=== PATIENT | male | born 1940 | race Caucasian/White ===

== ENCOUNTER → 2016-12-20 | Outpatient (CLI) | payer MEDICARE ==
[2016-12-20 09:47] LABS: MEAN CORPUSCULAR HEMOGLOBIN 34.4 pg (27.0-33.0); MEAN CORPUSCULAR HGB CONC 32.7 g/dl (32.0-36.5); MEAN CORPUSCULAR VOLUME 105.4 fl (80.0-96.0); RED CELL DISTRIBUTION WIDTH 14.1 % (11.5-14.5)
[2016-12-20 10:25] LABS: ALBUMIN 3.4 GM/DL (3.2-5.2); ALBUMIN/GLOBULIN RATIO 0.89 (1.00-1.93); ALKALINE PHOSPHATASE 72 U/L (45-117); ALT/SGPT 16 U/L (12-78); ANION GAP 8 MEQ/L (8-16); AST/SGOT 18 U/L (15-37); BILIRUBIN,TOTAL 0.5 MG/DL (0.2-1.0); BLOOD UREA NITROGEN 17 MG/DL (7-18); CALCIUM LEVEL 8.6 MG/DL (8.8-10.2); CARBON DIOXIDE LEVEL 31 MEQ/L (21-32); CHLORIDE LEVEL 99 MEQ/L (98-107); CHOLESTEROL LEVEL 163 MG/DL (<200); CREATININE FOR GFR 0.96 MG/DL (0.70-1.30); GLOMERULAR FILTRATION RATE > 60.0 (>42); GLUCOSE, FASTING 102 MG/DL (83-110); POTASSIUM SERUM 3.8 MEQ/L (3.5-5.1); SODIUM LEVEL 138 MEQ/L (136-145); TOTAL PROTEIN 7.2 GM/DL (6.4-8.2); TRIGLYCERIDES LEVEL 130 MG/DL (<150); URIC ACID 3.8 MG/DL (3.5-7.2)
== END ==
LOC: M LAB 09:30
PROVIDERS: ATTEND Family Medicine
DX: I10 Essential (primary) hypertension (principal); M10.9 Gout, unspecified

== ENCOUNTER → 2017-01-11 | Outpatient (CLI) | payer MEDICARE ==
--- NOTE | 2017-01-11 17:34 | PFTRPT ---
Tech: Marisela REYNOLDS RRT Age: 76 Sex: Male Race: Height: 70.50 Inches Weight: 147.00 Lbs BSA: 1.84 Diagnosis: J44.9 PULMONARY FUNCTION REPORT ORDERING PROVIDER: Eliazar Saldana MD DATE OF SERVICE: 01/11/17 SPIROMETRY: Pre and post bronchodilator study of excellent technical quality. The forced vital capacity is severely reduced. The FEV1 is out of proportion. The obstructive index is, therefore, reduced. FLOW VOLUME LOOP: The expiratory limb of the flow volume loop is consistent with significant obstructive impairment. Favorable bronchodilator response is identified. LUNG VOLUMES: The total lung capacity is borderline elevated. The residual volume suggests significant air trapping. DIFFUSION CAPACITY: The diffusion capacity is severely reduced, but just does correct for alveolar volume. HEMOGLOBIN: No hemoglobin is available for correction. AIRWAY MECHANICS: Airways resistance and conductance are reasonable. IMPRESSION: Severe obstructive ventilatory impairment with underlying air trapping. Favorable bronchodilator response. Reduction in the absolute diffusion capacity. Please correlate clinically. MTDD
== END ==
LOC: M CARPUL 13:24
PROVIDERS: ATTEND Family Medicine
DX: J44.9 Chronic obstructive pulmonary disease, unspecified (principal)

== ENCOUNTER → 2017-08-17 | Outpatient (CLI) | payer MEDICARE ==
[2017-08-17 11:24] LABS: BASO # 0.1 10^3/uL (0.0-0.2); BASO % 1.2 % (0.0-1.0); EOS # 0.2 10^3/uL (0.0-0.50); EOS % 2.4 % (0.0-3.0); HEMATOCRIT 41.7 % (42.0-52.0); HEMOGLOBIN 13.7 g/dl (14.0-18.0); IMMATURE GRANULOCYTE # 0.1 10^3/uL (0-0); IMMATURE GRANULOCYTE % 0.6 % (0-0); LYMPH # 1.8 10^3/uL (1.5-4.5); LYMPH % 18.7 % (24.0-44.0); MEAN CORPUSCULAR HEMOGLOBIN 33.4 pg (27.0-33.0); MEAN CORPUSCULAR HGB CONC 32.9 g/dl (32.0-36.5); MEAN CORPUSCULAR VOLUME 101.7 fl (80.0-96.0); MONO # 0.9 10^3/uL (0.0-0.8); MONO % 9.7 % (0.0-5.0); NEUTROPHILS # 6.3 10^3/uL (1.8-7.7); NEUTROPHILS % 67.4 % (36.0-66.0); PLATELET COUNT, AUTOMATED 274 10^3/uL (150-450); RED CELL DISTRIBUTION WIDTH 13.9 % (11.5-14.5); WHITE BLOOD COUNT 9.4 10^3/uL (4.0-10.0)
[2017-08-17 11:52] LABS: ERYTHROCYTE SEDIMENTATION RATE 38 mm/hr (0-20)
[2017-08-17 12:09] LABS: ALBUMIN 3.7 GM/DL (3.2-5.2); ALBUMIN/GLOBULIN RATIO 0.97 (1.00-1.93); ALKALINE PHOSPHATASE 70 U/L (45-117); ALT/SGPT 20 U/L (12-78); ANION GAP 9 MEQ/L (8-16); AST/SGOT 22 U/L (7-37); BILIRUBIN,TOTAL 0.4 MG/DL (0.2-1.0); BLOOD UREA NITROGEN 38 MG/DL (7-18); CALCIUM LEVEL 9.1 MG/DL (8.8-10.2); CARBON DIOXIDE LEVEL 29 MEQ/L (21-32); CHLORIDE LEVEL 103 MEQ/L (98-107); CREATININE FOR GFR 1.42 MG/DL (0.70-1.30); GLOMERULAR FILTRATION RATE 51.3 (>42); GLUCOSE, FASTING 93 MG/DL (83-110); LDH LACTATE DEHYDROGENASE 147 U/L (87-241); POTASSIUM SERUM 4.5 MEQ/L (3.5-5.1); PROSTATIC SPECIFIC AG MONITOR 0.73 NG/ML (< 4.0); SODIUM LEVEL 141 MEQ/L (136-145); TOTAL PROTEIN 7.5 GM/DL (6.4-8.2)
== END ==
LOC: M LAB 11:03
DX: R63.4 Abnormal weight loss (principal)
CPT/HCPCS: 83615

== ENCOUNTER 2018-08-07 09:53 | Inpatient (IN) | payer MEDICARE ==
[~2018-08-07] VITALS: Ht 172.7 cm; Wt 64.3 kg
[~2018-08-07 09:53] MED LIST: ALLO100T PO; AMLO5TAB4 PO; CEFD300CAP FT; MUCI600T37 PO; PRED10TA2 PO; PROAAER10 INH; SIMV40TA2 PO; SYMB16INH INH; TOPR50TA23 PO; VENTAER INH; ZYLO300T6 PO
[2018-08-07] MEDS ORDERED: methylPREDNISolone INJ 125 MG/2 ML VIAL (J2930) IV ONE (10:30)
[2018-08-07 10:40] LABS: VENOUS BASE EXCESS -0.7 (-2.0-2.0); VENOUS HCO3 27.7 MEQ/L (23.0-27.0); VENOUS O2 SATURATION 68.1 % (60.0-80.0); VENOUS PARTIAL PRESSURE CO2 62.8 mmHg (38.0-50.0); VENOUS PARTIAL PRESSURE O2 38.6 mmHg (30.0-50.0); VENOUS PH 7.263 UNITS (7.330-7.430); VENOUS STANDARD HCO3 23.1 MEQ/L; VENOUS TOTAL CO2 29.7 MEQ/L (24.0-28.0)
[2018-08-07 10:43] LABS: ABG BASE EXCESS -1.5 (-2.0-2.0); ABG HCO3 24.9 MEQ/L (22.0-26.0); ABG O2 SATURATION 94.2 % (95.0-99.0); ABG PARTIAL PRESSURE CO2 48.6 mmHg (35.0-45.0); ABG PARTIAL PRESSURE O2 74.7 mmHg (75.0-100.0); ABG STANDARD HCO3 23.1 MEQ/L (22.0-26.0); ABG TOTAL CO2 26.4 MEQ/L (23.0-31.0); ABG pH (ARTERIAL) 7.327 UNITS (7.350-7.450)
[2018-08-07] MEDS: IPRATROPIUM 0.5MG/ALBUTEROL 2.5MG INH SOL UD 3ML (DUONEB)(J7620) NEB SCH ×3 (10:43→11:03)
[2018-08-07 10:44] LABS: BASO # 0.1 10^3/uL (0.0-0.2); BASO % 0.3 % (0.0-1.0); HEMATOCRIT 40.8 % (42.0-52.0); HEMOGLOBIN 13.3 g/dl (13.5-17.5); LYMPH # 0.5 10^3/uL (1.5-4.5); LYMPH % 3.3 % (24.0-44.0); MEAN CORPUSCULAR HEMOGLOBIN 34.5 pg (27.0-33.0); MEAN CORPUSCULAR HGB CONC 32.6 g/dl (32.0-36.5); MEAN CORPUSCULAR VOLUME 105.7 fl (80.0-96.0); MONO # 0.7 10^3/uL (0.0-0.8); MONO % 4.7 % (0.0-5.0); NEUTROPHILS # 12.9 10^3/uL (1.8-7.7); NEUTROPHILS % 90.6 % (36.0-66.0); PLATELET COUNT, AUTOMATED 199 10^3/uL (150-450); RED BLOOD COUNT 3.86 10^6/uL (4.30-6.10); WHITE BLOOD COUNT 14.3 10^3/uL (4.0-10.0)
[2018-08-07 10:51] LABS: INR 0.8; PROTHROMBIN TIME 11.1 SECONDS (12.1-14.4)
[2018-08-07 11:13] LABS: ALBUMIN 3.3 GM/DL (3.2-5.2); ALT/SGPT 21 U/L (12-78); BILIRUBIN,DIRECT 0.2 MG/DL (0.0-0.2); BILIRUBIN,TOTAL 0.6 MG/DL (0.2-1.0); BLOOD UREA NITROGEN 20 MG/DL (7-18); CALCIUM LEVEL 8.8 MG/DL (8.8-10.2); CARBON DIOXIDE LEVEL 30 MEQ/L (21-32); CHLORIDE LEVEL 100 MEQ/L (98-107); CPK CREATINE PHOSPHOKINASE 56 U/L (39-308); CREATININE FOR GFR 1.52 MG/DL (0.70-1.30); GLOMERULAR FILTRATION RATE 47.3 (>42); GLUCOSE, FASTING 203 MG/DL (70-100); MB/CK RELATIVE INDEX 2.14 (< OR =4); NT-PRO BNP 1997 PG/ML (<450); POTASSIUM SERUM 4.3 MEQ/L (3.5-5.1); SODIUM LEVEL 137 MEQ/L (136-145); TOTAL PROTEIN 7.6 GM/DL (6.4-8.2); TROPONIN I < 0.02 NG/ML (< 0.10)
[2018-08-07] MEDS ORDERED: NS 1,000 ML IV ONE (11:15)
--- NOTE | 2018-08-07 11:17 | REP ---
Clinical: Cough and dyspnea. Comparison: 12/12/2017. Findings: Mediastinum and cardiac silhouette are stable within normal limits. Lung mcdermott demonstrate advanced COPD/emphysematous disease. No obvious acute consolidation, effusion, or pneumothorax. Skeletal structures stable. Impression: Advanced chronic COPD/emphysematous disease. No obvious acute process. Electronically Signed by Fernando Grace MD 08/07/2018 11:08 A
[2018-08-07] MEDS ORDERED: GUAI1TAB PO (12:05)
[2018-08-07] MEDS ORDERED: CENT1TAB PO (12:05)
[2018-08-07] MEDS ORDERED: SIMV20TA2 PO (12:05)
[2018-08-07] MEDS ORDERED: cefTRIAXone SOD 1 GM in D5W MINI-BAG PLUS 50 ML IV ONE (12:30)
[2018-08-07] MEDS ORDERED: AZITHROMYCIN INJ 500 MG, VIAL MATE ADAPTER 1 EACH in D5W 250 ML IV ONE (12:30)
--- NOTE | 2018-08-07 13:27 | HPEPDOC ---
General Date of Admission 08.07.17 Chief Complaint The patient is a 78-year-old male admitted with a reason for visit of DIZZY. Source: Patient Exam Limitations: No limitations Severity: Mild History of Present Illness 78 y/o male presents to the ED with the complaint of two day history of nasal congestion, increased SOB and muscle ache with chills. He denies recent sick contact or travel, denies n/v or diarrhea, no abdominal pain, no chest pain or increased cough, he has baseline cough from smoking and COPD. He admits he is on 2 L O2 at home. No decrease in appetite recently. No change to medications recently. He thinks his heart rate was a little fast this morning and apparently he checks his O2 sat at home with a pulse ox and stated it was a little low, less than 90% which concerned him. Denies chest pain. He decided to come to the ED for further evaluation. Home Medications Scheduled Allopurinol (Zyloprim) 300 Mg Tab, 300 MG PO DAILY, (Reported) Budesonide/Formoterol (Symbicort 160-4.5 Mcg/Act) 60 Puff/Inhaler Aers, 2 PUFF INH BID, (Reported) Guaifenesin (Guaifenesin ER) 600 Mg Tab, 600 MG PO DAILY, (Reported) Metoprolol Succinate (Toprol Xl) 50 Mg Tab, 50 MG PO DAILY, (Reported) Multivitamins (Centrum Silver Adult 50+) 1 Tab Tab, 1 TAB PO DAILY, (Reported) Simvastatin (Simvastatin) 20 Mg Tab, 20 MG PO QHS, (Reported) Scheduled PRN Albuterol Sulfate (Ventolin Hfa) 108 Mcg/Act Aer, 2 PUFFS INH Q4H PRN for SHORTNESS OF BREATH, (Reported) Allergies Coded Allergies: No Known Allergies (Unverified , 12/12/17) Past Medical History Medical History COPD DLP HTN tremor Surgical History colonoscopy Family History Significant Family History: No pertinent family hx Social History * Smoker: current smoker Alcohol: occationally Drugs: denies Recent Travel/Sick Contacts: Denies: Recent travel, Recent sick contacts Review of Systems Constitutional: Reports: Chills, Fever, Malaise, Weakness, Fatigue; Denies: Night Sweats, Weight Loss Pulmonary: Reports: Dyspnea, Cough; Denies: Pleuritic Chest Pain Cardiovascular: Reports: Lt Headedness; Denies: Chest Pain Gastrointestinal: Denies: Nausea, Vomiting, Abdominal Pain, Diarrhea, Constipation, Melena, Hematochezia Genitourinary: Denies: Dysuria Neurological: Reports: Weakness Psych: Reports: Mood Normal Physical Examination General Exam: Positive: Alert, Cooperative, No Acute Distress Eye Exam: Positive: Conjunctiva & lids normal ENT Exam: Positive: Mucous membr. moist/pink Chest Exam: Positive: Wheezing; Negative: Normal air movement, Rales, Rhonchi, Diminished Heart Exam: Positive: Rate Normal, Regular Rhythm, Normal S1, Normal S2 Abdomen Exam: Positive: Normal bowel sounds, Soft; Negative: Tenderness, Hepatospenomegaly Extremity Exam: Negative: Clubbing, Cyanosis, Edema Neuro Exam: Positive: Normal Speech Psych Exam: Positive: Mental status NL Vital Signs Vital Signs Date Time Temp Pulse Resp B/P (MAP) Pulse Ox O2 Delivery O2 Flow Rate FiO2 08/07/18 12:31 97 96 08/07/18 12:15 129/58 (81) 08/07/18 11:00 Nasal Cannula 2.0 08/07/18 09:53 99.7 23 Laboratory Data Labs 24H Laboratory Tests 2 08/07/18 10:22: Immature Granulocyte % (Auto) 1.1, White Blood Count 14.3H, Red Blood Count 3.86L, Hemoglobin 13.3L, Hematocrit 40.8L, Mean Corpuscular Volume 105.7H, Mean Corpuscular Hemoglobin 34.5H, Mean Corpuscular Hemoglobin Concent 32.6, Red Cell Distribution Width 14.2, Platelet Count 199, Neutrophils (%) (Auto) 90.6H, Lymphocytes (%) (Auto) 3.3L, Monocytes (%) (Auto) 4.7, Eosinophils (%) (Auto) 0.0, Basophils (%) (Auto) 0.3, Neutrophils # (Auto) 12.9H, Lymphocytes # (Auto) 0.5L, Monocytes # (Auto) 0.7, Eosinophils # (Auto) 0.0, Basophils # (Auto) 0.1, Nucleated Red Blood Cells % (auto) 0.0, Prothrombin Time 11.1L, Prothromb Time International Ratio 0.80, Blood Gas Bicarbonate Standard 23.1, Venous Blood pH 7.263L, Venous Blood Partial Pressure CO2 62.8H, Venous Blood Partial Pressure O2 38.6, Venous Blood Total Carbon Dioxide 29.7H, Venous Blood HCO3 27.7H, Venous Blood Oxygen Saturation 68.1, Venous Blood Base Excess -0.7, Anion Gap 7L, Glomerular Filtration Rate 47.3, Lactic Acid Level 3.0*H, Calcium Level 8.8, Aspartate Amino Transf (AST/SGOT) 21, Alanine Aminotransferase (ALT/SGPT) 21, Alkaline Phosphatase 84, Total Bilirubin 0.6, Direct Bilirubin 0.2, Total Creatine Kinase 56, Creatine Kinase MB 1.0, Creatine Kinase MB Relative Index 2.14, Troponin I < 0.02, ZN-Zad-Z-Type Natriuretic Peptide 1997H, Total Protein 7.6, Albumin 3.3, Albumin/Globulin Ratio 0.77L, Thyroid Stimulating Hormone (TSH) 2.400 08/07/18 10:33: Blood Gas Bicarbonate Standard 23.1, Arterial Blood pH 7.327L, Arterial Blood Partial Pressure CO2 48.6H, Arterial Blood Partial Pressure O2 74.7L, Arterial Blood Total CO2 26.4, Arterial Blood HCO3 24.9, Arterial Blood Base Excess -1.5, Arterial Blood Oxygen Saturation 94.2L CBC/BMP Laboratory Tests 08/07/18 10:22 Red Blood Count 3.86 L, Mean Corpuscular Volume 105.7 H, Mean Corpuscular Hemoglobin 34.5 H, Mean Corpuscular Hemoglobin Concent 32.6, Red Cell Distribution Width 14.2, Neutrophils (%) (Auto) 90.6 H, Lymphocytes (%) (Auto) 3.3 L, Monocytes (%) (Auto) 4.7, Eosinophils (%) (Auto) 0.0, Basophils (%) (Auto) 0.3, Neutrophils # (Auto) 12.9 H, Lymphocytes # (Auto) 0.5 L, Monocytes # (Auto) 0.7, Eosinophils # (Auto) 0.0, Basophils # (Auto) 0.1 Microbiology Microbiology 08/07/18 Blood Culture, Received Pending 08/07/18 Blood Culture, Received Pending 08/07/18 Gram Stain, Received Pending 08/07/18 Sputum Culture, Received Pending 08/07/18 Respiratory Virus Panel (PCR) (TEVIN) - Final, Complete Respiratory Syncytial Virus Assessment/Plan 1. Sepsis secondary to COPD exacerbation from RSV -pt- RSV is positive -CXR in ED demonstrated chronic COPD changes, no acute infiltrate -blood and sputum cultures pending -minimal bump in WBC, afebrile- pt received azithromycin and Rocephin in ED., can continue for now, patient may have these d/c by morning attending as likely source is RSV -ABG shows mildly elevated pCO2 from patients baseline -c/w O2 therapy and Duo-Neb therapy for now -repeat ABG for AM 2. DLP -c/w home medications 3. HTN -c/w home medications 4. Gout -c/w home medications 5. Physical deconditioning -PT ordered 6. DVT px -heparin sq -SCD TEDS Plan / VTE VTE Prophylaxis Ordered?: Yes GME ATTESTATION GME ATTESTATION My faculty preceptor for this patient encounter was physically present during the encounter and was fully available. All aspects of the patient interview, examination, medical decision making process, and medical care plan development were reviewed and approved by the faculty preceptor. The faculty preceptor is aware and concurs with the plan as stated in the body of this note and will attest to such by his/her cosignature. ATTENDING NOTE Pt seen and examined. Agree with A/P as above MICHELLE GRECO DO Aug 07, 2018 13:27 SUNNI GUZMÁN MD Aug 07, 2018 21:34
[2018-08-07] MEDS ORDERED: IPRATROPIUM 0.5MG/ALBUTEROL 2.5MG INH SOL UD 3ML (DUONEB)(J7620) NEB PRN (13:45)
[2018-08-07] MEDS ORDERED: ACETAMINOPHEN TAB 650MG DOSE (2X325MG) PO PRN (14:00)
[2018-08-07] MEDS: guaiFENesin ER 600 MG TAB PO SCH (15:09)
[2018-08-07] MEDS: predniSONE 20 MG TAB PO SCH (15:10)
[2018-08-07 15:35] VITALS: BP 141/71
[2018-08-07 18:00] VITALS: BP 145/80
[2018-08-07] MEDS: SIMVASTATIN 20 MG TAB PO SCH (20:13)
[2018-08-07] MEDS: HEPARIN SOD (PORCINE) 5000 UNITS/ML VIAL SC SCH (20:13)
[2018-08-07 22:00] VITALS: BP 123/64
[2018-08-08 05:49] LABS: BASO % 0.1 % (0.0-1.0); HEMATOCRIT 35.6 % (42.0-52.0); HEMOGLOBIN 11.8 g/dl (13.5-17.5); LYMPH # 0.4 10^3/uL (1.5-4.5); LYMPH % 3.4 % (24.0-44.0); MEAN CORPUSCULAR HEMOGLOBIN 34.3 pg (27.0-33.0); MEAN CORPUSCULAR HGB CONC 33.1 g/dl (32.0-36.5); MEAN CORPUSCULAR VOLUME 103.5 fl (80.0-96.0); MONO # 0.4 10^3/uL (0.0-0.8); MONO % 3.2 % (0.0-5.0); NEUTROPHILS % 92.6 % (36.0-66.0); PLATELET COUNT, AUTOMATED 162 10^3/uL (150-450); RED BLOOD COUNT 3.44 10^6/uL (4.30-6.10)
[2018-08-08 06:00] VITALS: BP 142/72
[2018-08-08 06:34] LABS: BLOOD UREA NITROGEN 31 MG/DL (7-18); CARBON DIOXIDE LEVEL 30 MEQ/L (21-32); CHLORIDE LEVEL 102 MEQ/L (98-107); CREATININE FOR GFR 1.02 MG/DL (0.70-1.30); GLOMERULAR FILTRATION RATE > 60.0 (>42); GLUCOSE, FASTING 130 MG/DL (70-100); POTASSIUM SERUM 4.6 MEQ/L (3.5-5.1); SODIUM LEVEL 137 MEQ/L (136-145)
[2018-08-08] MEDS ORDERED: ALBUTEROL SULFATE 2.5 MG/0.5 ML INH NEB SOLN NEB PRN (07:00)
[2018-08-08] MEDS: IPRATROPIUM 0.5MG/ALBUTEROL 2.5MG INH SOL UD 3ML (DUONEB)(J7620) NEB SCH ×2 (07:30→16:15)
[2018-08-08] MEDS: SYMBICORT 80/4.5MCG INHALER 6GM INH SCH ×2 (07:30→21:27)
[2018-08-08] MEDS: guaiFENesin ER 600 MG TAB PO SCH (08:35)
[2018-08-08] MEDS: HEPARIN SOD (PORCINE) 5000 UNITS/ML VIAL SC SCH ×2 (08:35→20:30)
[2018-08-08] MEDS: predniSONE 20 MG TAB PO SCH (08:35)
[2018-08-08] MEDS: METOPROLOL SUCC (TopROL XL) 50MG **XL** TAB PO SCH (08:35)
[2018-08-08] MEDS: ALLOPURINOL 300 MG TAB PO SCH (08:35)
[2018-08-08] MEDS: MULTIVITAMINS/MINERALS THERAP 1 TAB PO SCH (08:35)
--- NOTE | 2018-08-08 08:38 | IPNPDOC ---
Subjective Date Seen The patient was seen on 08/08/18. Subjective Chief Complaint/HPI . General: Denies: Chills, Night Sweats Pulmonary: Reports: Dyspnea, Cough; Denies: Pleuritic Chest Pain Cardiovascular: Denies: Chest Pain, Palpitations Gastrointestinal: Denies: Nausea, Vomiting, Abdominal Pain, Diarrhea, Constipation Genitourinary: Denies: Dysuria Neurological: Reports: Weakness Objective Physical Examination General Exam: Positive: Alert, Cooperative, No Acute Distress Eye Exam: Positive: Conjunctiva & lids normal ENT Exam: Positive: Mucous membr. moist/pink Neck Exam: Positive: Supple Chest Exam: Positive: Wheezing; Negative: Normal air movement, Rales, Rhonchi, Diminished Heart Exam: Positive: Rate Normal, Regular Rhythm, Normal S1, Normal S2 Abdomen Exam: Positive: Normal bowel sounds, Soft; Negative: Tenderness, Hepatospenomegaly Extremity Exam: Negative: Clubbing, Cyanosis, Edema Neuro Exam: Positive: Normal Speech Psych Exam: Positive: Mental status NL, Oriented x 3 Assessment /Plan Assessment 1. Sepsis secondary to COPD exacerbation from RSV -patients breathing is better controlled today -WBC improved today, pt. remains afebrile -pt- RSV is positive -CXR in ED demonstrated chronic COPD changes, no acute infiltrate -blood and sputum cultures pending -pt received azithromycin and Rocephin in ED., can continue for now -ABG showed mildly elevated pCO2 from patients baseline upon presentation -c/w O2 therapy and Duo-Neb therapy for now -repeat ABG for AM -Chest PT ordered 2.Acute on chronic hypoxic respiratory failure -secondary to RSV -plan as detailed above 3. DLP -c/w home medications 4. HTN -c/w home medications 5. Gout -c/w home medications 6. Physical de-conditioning -PT ordered 7. DVT px -heparin sq -SCD TEDS Plan/VTE VTE Prophylaxis Ordered?: Yes VS, I&O, 24H, Fishbone Vital Signs/I&O Vital Signs Date Time Temp Pulse Resp B/P (MAP) Pulse Ox O2 Delivery O2 Flow Rate FiO2 08/08/18 06:00 97.6 82 16 142/72 (95) 97 Nasal Cannula 1.0 I&O- Last 24 Hours up to 6 AM 08/08/18 06:00 Intake Total 1500 ml Output Total 0 ml Balance 1500 ml Laboratory Data 24H LABS Laboratory Tests 2 08/07/18 10:22: Immature Granulocyte % (Auto) 1.1, White Blood Count 14.3H, Red Blood Count 3.86L, Hemoglobin 13.3L, Hematocrit 40.8L, Mean Corpuscular Volume 105.7H, Mean Corpuscular Hemoglobin 34.5H, Mean Corpuscular Hemoglobin Concent 32.6, Red Cell Distribution Width 14.2, Platelet Count 199, Neutrophils (%) (Auto) 90.6H, Lymphocytes (%) (Auto) 3.3L, Monocytes (%) (Auto) 4.7, Eosinophils (%) (Auto) 0.0, Basophils (%) (Auto) 0.3, Neutrophils # (Auto) 12.9H, Lymphocytes # (Auto) 0.5L, Monocytes # (Auto) 0.7, Eosinophils # (Auto) 0.0, Basophils # (Auto) 0.1, Nucleated Red Blood Cells % (auto) 0.0, Prothrombin Time 11.1L, Prothromb Time International Ratio 0.80, Blood Gas Bicarbonate Standard 23.1, Venous Blood pH 7.263L, Venous Blood Partial Pressure CO2 62.8H, Venous Blood Partial Pressure O2 38.6, Venous Blood Total Carbon Dioxide 29.7H, Venous Blood HCO3 27.7H, Venous Blood Oxygen Saturation 68.1, Venous Blood Base Excess -0.7, Anion Gap 7L, Glomerular Filtration Rate 47.3, Lactic Acid Level 3.0*H, Calcium Level 8.8, Aspartate Amino Transf (AST/SGOT) 21, Alanine Aminotransferase (ALT/SGPT) 21, Alkaline Phosphatase 84, Total Bilirubin 0.6, Direct Bilirubin 0.2, Total Cr eatine Kinase 56, Creatine Kinase MB 1.0, Creatine Kinase MB Relative Index 2.14, Troponin I < 0.02, JW-Pzd-M-Type Natriuretic Peptide 1997H, Total Protein 7.6, Albumin 3.3, Albumin/Globulin Ratio 0.77L, Thyroid Stimulating Hormone (TSH) 2.400 08/07/18 10:33: Blood Gas Bicarbonate Standard 23.1, Arterial Blood pH 7.327L, Arterial Blood Partial Pressure CO2 48.6H, Arterial Blood Partial Pressure O2 74.7L, Arterial Blood Total CO2 26.4, Arterial Blood HCO3 24.9, Arterial Blood Base Excess -1.5, Arterial Blood Oxygen Saturation 94.2L 08/07/18 14:50: Lactic Acid Followup at 4 Hours 1.8 08/08/18 05:35: Immature Granulocyte % (Auto) 0.7, White Blood Count 13.0H, Red Blood Count 3.44L, Hemoglobin 11.8L, Hematocrit 35.6L, Mean Corpuscular Volume 103.5H, Mean Corpuscular Hemoglobin 34.3H, Mean Corpuscular Hemoglobin Concent 33.1, Red Cell Distribution Width 13.8, Platelet Count 162, Neutrophils (%) (Auto) 92.6H, Lymphocytes (%) (Auto) 3.4L, Monocytes (%) (Auto) 3.2, Eosinophils (%) (Auto) 0.0, Basophils (%) (Auto) 0.1, Neutrophils # (Auto) 12.0H, Lymphocytes # (Auto) 0.4L, Monocytes # (Auto) 0.4, Eosinophils # (Auto) 0.0, Basophils # (Auto) 0.0, Nucleated Red Blood Cells % (auto) 0.0, Anion Gap 5L, Glomerular Filtration Rate > 60.0, Calcium Level 9.0, Blood Urea Nitrogen 31#H, Creatinine 1.02, Sodium Level 137, Potassium Level 4.6, Chloride Level 102, Carbon Dioxide Level 30 CBC/BMP Laboratory Tests 08/07/18 10:22 Red Blood Count 3.86 L, Mean Corpuscular Volume 105.7 H, Mean Corpuscular Hemoglobin 34.5 H, Mean Corpuscular Hemoglobin Concent 32.6, Red Cell Distribution Width 14.2, Neutrophils (%) (Auto) 90.6 H, Lymphocytes (%) (Auto) 3.3 L, Monocytes (%) (Auto) 4.7, Eosinophils (%) (Auto) 0.0, Basophils (%) (Auto) 0.3, Neutrophils # (Auto) 12.9 H, Lymphocytes # (Auto) 0.5 L, Monocytes # (Auto) 0.7, Eosinophils # (Auto) 0.0, Basophils # (Auto) 0.1 08/08/18 05:35 Red Blood Count 3.44 L, Mean Corpuscular Volume 103.5 H, Mean Corpuscular Hemoglobin 34.3 H, Mean Corpuscular Hemoglobin Concent 33.1, Red Cell Distribution Width 13.8, Neutrophils (%) (Auto) 92.6 H, Lymphocytes (%) (Auto) 3.4 L, Monocytes (%) (Auto) 3.2, Eosinophils (%) (Auto) 0.0, Basophils (%) (Auto) 0.1, Neutrophils # (Auto) 12.0 H, Lymphocytes # (Auto) 0.4 L, Monocytes # (Auto) 0.4, Eosinophils # (Auto) 0.0, Basophils # (Auto) 0.0, Calcium Level 9.0 Microbiology Microbiology 08/07/18 Blood Culture, Received Pending 08/07/18 Blood Culture, Received Pending 08/07/18 Gram Stain - Final, Resulted 08/07/18 Sputum Culture, Resulted Pending 08/07/18 Respiratory Virus Panel (PCR) (TEVIN) - Final, Complete Respiratory Syncytial Virus GME ATTESTATION GME ATTESTATION My faculty preceptor for this patient encounter was physically present during the encounter and was fully available. All aspects of the patient interview, examination, medical decision making process, and medical care plan development were reviewed and approved by the faculty preceptor. The faculty preceptor is aware and concurs with the plan as stated in the body of this note and will attest to such by his/her cosignature. MICHELLE GRECO DO Aug 08, 2018 08:38
[2018-08-08] MEDS ORDERED: cefTRIAXone SOD 1 GM in D5W MINI-BAG PLUS 50 ML IV ONE (09:00)
[2018-08-08] MEDS: AZITHROMYCIN INJ 500 MG, VIAL MATE ADAPTER 1 EACH in D5W 250 ML IV SCH (09:41)
--- NOTE | 2018-08-08 16:43 | ECGEPIP ---
Stationary ECG Study [facility] - ED Test Date: 2018-08-07 Pat Name: GUERO KIM Department: Room: - Gender: M Physical Therapist Aide: ibandimas : 1940 Requested By: Rekha Coleman Order Number: [id number] Reading MD: Rekha Coleman Measurements Intervals [place] Rate: 109 P: 90 [place]: 152 QRS: 85 QRSD: 84 T: 50 QT: 335 QTc: 452 Interpretive Statements SINUS TACHYCARDIA WITH OCCASIONAL SUPRAVENTRICULAR PREMATURE COMPLEXES ABNORMAL RHYTHM ECG NSTTW ABNORMALITY BASELINE ARTIFACT LIMITS INTERPRETATION SIMILAR 12/12/17 Electronically Signed On 08-08-2018 16:43:33 EST by Rekha Coleman
[2018-08-08] MEDS: SIMVASTATIN 20 MG TAB PO SCH (20:30)
[2018-08-08 22:00] VITALS: BP 133/67
[2018-08-09] MEDS: IPRATROPIUM 0.5MG/ALBUTEROL 2.5MG INH SOL UD 3ML (DUONEB)(J7620) NEB SCH ×3 (03:52→15:45)
[2018-08-09 05:58] LABS: BASO % 0.1 % (0.0-1.0); HEMATOCRIT 33.6 % (42.0-52.0); LYMPH # 0.7 10^3/uL (1.5-4.5); LYMPH % 5.3 % (24.0-44.0); MEAN CORPUSCULAR HGB CONC 32.7 g/dl (32.0-36.5); MEAN CORPUSCULAR VOLUME 103.7 fl (80.0-96.0); MONO # 0.8 10^3/uL (0.0-0.8); MONO % 6.2 % (0.0-5.0); NEUTROPHILS # 11.2 10^3/uL (1.8-7.7); NEUTROPHILS % 87.6 % (36.0-66.0); PLATELET COUNT, AUTOMATED 176 10^3/uL (150-450); RED BLOOD COUNT 3.24 10^6/uL (4.30-6.10); WHITE BLOOD COUNT 12.7 10^3/uL (4.0-10.0)
[2018-08-09 06:00] VITALS: BP 128/62
[2018-08-09 06:22] LABS: BLOOD UREA NITROGEN 38 MG/DL (7-18); CALCIUM LEVEL 8.7 MG/DL (8.8-10.2); CARBON DIOXIDE LEVEL 31 MEQ/L (21-32); CHLORIDE LEVEL 103 MEQ/L (98-107); GLOMERULAR FILTRATION RATE > 60.0 (>42); GLUCOSE, FASTING 105 MG/DL (70-100); SODIUM LEVEL 138 MEQ/L (136-145)
[2018-08-09] MEDS: SYMBICORT 80/4.5MCG INHALER 6GM INH SCH ×2 (08:45→19:54)
[2018-08-09] MEDS ORDERED: predniSONE 50 MG TAB PO SCH (09:00)
[2018-08-09] MEDS: MULTIVITAMINS/MINERALS THERAP 1 TAB PO SCH (09:45)
[2018-08-09] MEDS: guaiFENesin ER 600 MG TAB PO SCH (09:45)
[2018-08-09] MEDS: ALLOPURINOL 300 MG TAB PO SCH (09:45)
[2018-08-09] MEDS: HEPARIN SOD (PORCINE) 5000 UNITS/ML VIAL SC SCH ×2 (09:46→20:09)
[2018-08-09] MEDS: AZITHROMYCIN INJ 500 MG, VIAL MATE ADAPTER 1 EACH in D5W 250 ML IV SCH (09:46)
[2018-08-09] MEDS: METOPROLOL SUCC (TopROL XL) 50MG **XL** TAB PO SCH (09:48)
--- NOTE | 2018-08-09 10:04 | IPNPDOC ---
Subjective Date Seen The patient was seen on 08/09/18. Subjective Chief Complaint/HPI . General: Denies: Chills, Night Sweats Pulmonary: Reports: Dyspnea (improved today), Cough Cardiovascular: Denies: Lt Headedness Gastrointestinal: Reports: Diarrhea; Denies: Nausea, Vomiting, Abdominal Pain, Constipation, Melena Neurological: Reports: Weakness Psych: Reports: Mood Normal Objective Physical Examination General Exam: Positive: Alert, Cooperative, No Acute Distress Eye Exam: Positive: Conjunctiva & lids normal ENT Exam: Positive: Mucous membr. moist/pink Neck Exam: Positive: Supple Chest Exam: Positive: Wheezing; Negative: Normal air movement, Rales, Rhonchi, Diminished Heart Exam: Positive: Rate Normal, Regular Rhythm, Normal S1, Normal S2 Abdomen Exam: Positive: Normal bowel sounds, Soft; Negative: Tenderness, Hepatospenomegaly Extremity Exam: Negative: Clubbing, Cyanosis, Edema Neuro Exam: Positive: Normal Speech Psych Exam: Positive: Mental status NL, Oriented x 3 Assessment /Plan Assessment 1. Sepsis secondary to COPD exacerbation from RSV -patients breathing is improved today -WBC improved today again to 12.7, pt. remains afebrile -pt-RSV is positive -CXR in ED demonstrated chronic COPD changes, no acute infiltrate -blood and sputum cultures showed MANY GRAM POSITIVE COCCI IN PAIRS AND CHAINS for sputum and gram positive cocci in pairs chains clusters -pt received azithromycin and Rocephin in ED., can continue Azithromycin and add Vanco for now -ABG showed mildly elevated pCO2 from patients baseline upon presentation -c/w O2 therapy and Duo-Neb therapy for now -Chest PT ordered 2. Gram positive cocci in blood -fist set blood cx + for gram positive cocci pairs chains and clusters, awaiting organism identification -begin IV vancomycin for MRSA coverage -consider ID consult if + MRSA -repeat blood cx ordered 3.Acute on chronic hypoxic respiratory failure -secondary to RSV -plan as detailed above 4. DLP -c/w home medications 5. HTN -c/w home medications 6. Gout -c/w home medications 7. Physical de-conditioning -PT ordered 8. DVT px -heparin sq -SCD TEDS Plan/VTE VTE Prophylaxis Ordered?: Yes VS, I&O, 24H, Fishbone Vital Signs/I&O Vital Signs Date Time Temp Pulse Resp B/P (MAP) Pulse Ox O2 Delivery O2 Flow Rate FiO2 1/3/19 09:48 67 139/68 08/09/18 06:00 98.8 16 97 Nasal Cannula 1.0 I&O- Last 24 Hours up to 6 AM 08/09/18 05:59 Intake Total 1420 ml Output Total 0 ml Balance 1420 ml Laboratory Data 24H LABS Laboratory Tests 2 08/09/18 05:45: Immature Granulocyte % (Auto) 0.8, White Blood Count 12.7H, Red Blood Count 3.24L, Hemoglobin 11.0L, Hematocrit 33.6L, Mean Corpuscular Volume 103.7H, Mean Corpuscular Hemoglobin 34.0H, Mean Corpuscular Hemoglobin Concent 32.7, Red Cell Distribution Width 13.6, Platelet Count 176, Neutrophils (%) (Auto) 87.6H, Lymp hocytes (%) (Auto) 5.3L, Monocytes (%) (Auto) 6.2H, Eosinophils (%) (Auto) 0.0, Basophils (%) (Auto) 0.1, Neutrophils # (Auto) 11.2H, Lymphocytes # (Auto) 0.7L, Monocytes # (Auto) 0.8, Eosinophils # (Auto) 0.0, Basophils # (Auto) 0.0, Nucleated Red Blood Cells % (auto) 0.0, Anion Gap 4L, Glomerular Filtration Rate > 60.0, Blood Urea Nitrogen 38H, Creatinine 1.10, Sodium Level 138, Potassium Level 4.0, Chloride Level 103, Carbon Dioxide Level 31, Calcium Level 8.7L CBC/BMP Laboratory Tests 08/09/18 05:45 Red Blood Count 3.24 L, Mean Corpuscular Volume 103.7 H, Mean Corpuscular Hemoglobin 34.0 H, Mean Corpuscular Hemoglobin Concent 32.7, Red Cell Distribution Width 13.6, Neutrophils (%) (Auto) 87.6 H, Lymphocytes (%) (Auto) 5.3 L, Monocytes (%) (Auto) 6.2 H, Eosinophils (%) (Auto) 0.0, Basophils (%) (Auto) 0.1, Neutrophils # (Auto) 11.2 H, Lymphocytes # (Auto) 0.7 L, Monocytes # (Auto) 0.8, Eosinophils # (Auto) 0.0, Basophils # (Auto) 0.0, Calcium Level 8.7 L Microbiology Microbiology 08/07/18 Blood Culture - Preliminary, Resulted 08/07/18 Blood Culture - Preliminary, Resulted No growth after 24 hours . All specim... 08/07/18 Gram Stain - Final, Resulted 08/07/18 Sputum Culture, Resulted Pending 08/07/18 Respiratory Virus Panel (PCR) (TEVIN) - Final, Complete Respiratory Syncytial Virus GME ATTESTATION GME ATTESTATION My faculty preceptor for this patient encounter was physically present during the encounter and was fully available. All aspects of the patient interview, examination, medical decision making process, and medical care plan development were reviewed and approved by the faculty preceptor. The faculty preceptor is aware and concurs with the plan as stated in the body of this note and will attest to such by his/her cosignature. MICHELLE GRECO DO Aug 09, 2018 10:04
--- NOTE | 2018-08-09 10:57 | PHACANCOPD ---
PHARMACY VANCOMYCIN DOSING Pt Demographics Demographics Patient Age:78 , Weight:64.300 , Gender: male Adjusted Body Weight Date: 08/09/18, Adjusted Body Weight: Kg Vancomycin Vancomycin indication: SEPSIS 2/2 COPD EXACERBATION FROM RSV Vancomycin Target Ranges: 15-20 mcg/ml Vancomycin Load Y/N: Yes Load Dose Date Time Vancomycin Load Dose: 1500mg Date: 08/09/17 Time: 1100 Vancomycin Dose Date: 08/09/18. Current Vancomycin Dose: [1g IV Q18H] Intermittent Dosing?: No Labs Labs Item Value Date Time White Blood Count 14.3 10^3/uL H 08/07/18 1022 White Blood Count 13.0 10^3/uL H 08/08/18 0535 White Blood Count 12.7 10^3/uL H 08/09/18 0545 Blood Urea Nitrogen 31 MG/DL H # 08/08/18 0535 Blood Urea Nitrogen 38 MG/DL H 08/09/18 0545 Creatinine 1.02 MG/DL 08/08/18 0535 Creatinine 1.10 MG/DL 08/09/18 0545 Lactic Acid Level 3.0 MMOL/L *H 08/07/18 1022 Lactic Acid Followup at 4 Hours 1.8 MMOL/L 08/07/18 1450 Lactic Acid Level 1.5 MMOL/L 08/08/18 0840 Micro Microbiology 08/09/18 Blood Culture, Received Pending 08/09/18 Blood Culture, Received Pending 08/07/18 Blood Culture - Preliminary, Resulted 08/07/18 Blood Culture - Preliminary, Resulted No Growth after 48 hours. All Specime... 08/07/18 Gram Stain - Final, Resulted 08/07/18 Sputum Culture, Resulted Pending 08/07/18 Respiratory Virus Panel (PCR) (TEVIN) - Final, Complete Respiratory Syncytial Virus Creatinine Clearance Date:08/09/18. Est Creatinine Clearance: [~53ml/min]. Assessment and Plan Maintaining Current Dose?: Yes Reason for dose change: No Dose Change Pharmacist Note Pharmacist Note Date: 08/09/18. Pharmacist note: Day #1 empiric vancomycin therapy initiated with a 1500mg loading dose, followed by a maintenance regimen of 1g IV Q18H for the treatment of sepsis 2/2 COPD exacerbation from RSV - aiming for a goal trough of 15-20mcg/ml. Sputum and /2 blood cultures are growing "many gram positive cocci in pairs and chains." A repeat blood culture has been ordered. Patient is also on day #3 IV azithromycin, and is s/p 2 days of IV rocephin. WBC is elevated but trending down (patient also on oral steroids), lactic acid was elevated on admit and is now WNL, the patient remains afebrile, and RR plus pulse ox are WNL on 1L O2. Scr was elevated on admit at 1.52, and is now back at baseline at 1.1. BUN is elevated and is trending up, so we will hold on scheduling a vancomycin trough at this point until we can further assess renal function tomorrow in response to vanco dosing to determine if an earlier trough level needs to be obtained. No PMH of MRSA or vanco use here at [facility]. We will continue to monitor and schedule a trough level/adjust dosing accordingly. MARGARET RAY PHARMAC[facility] Aug 09, 2018 10:57
[2018-08-09] MEDS ORDERED: VANCOMYCIN HCL 1,000 MG, VIAL MATE ADAPTER 1 EACH in D5W 250 ML IV SCH (11:00)
[2018-08-09] MEDS: VANCOMYCIN HCL 1,000 MG, VIAL MATE ADAPTER 1 EACH in D5W 250 ML IV SCH (11:58)
[2018-08-09] MEDS ORDERED: VANCOMYCIN HCL 500 MG in D5W MINI-BAG PLUS 100 ML IV ONE ×2 (12:00→13:00)
[2018-08-09 14:00] VITALS: BP 136/71
[2018-08-09] MEDS: SIMVASTATIN 20 MG TAB PO SCH (20:09)
[2018-08-09 22:00] VITALS: BP 135/72
[2018-08-10 05:58] LABS: HEMOGLOBIN 10.7 g/dl (13.5-17.5); MEAN CORPUSCULAR HEMOGLOBIN 34.2 pg (27.0-33.0); MEAN CORPUSCULAR HGB CONC 33.4 g/dl (32.0-36.5); MEAN CORPUSCULAR VOLUME 102.2 fl (80.0-96.0); PLATELET COUNT, AUTOMATED 182 10^3/uL (150-450); RED BLOOD COUNT 3.13 10^6/uL (4.30-6.10); WHITE BLOOD COUNT 8.4 10^3/uL (4.0-10.0)
[2018-08-10 06:00] VITALS: BP 132/79
[2018-08-10] MEDS: VANCOMYCIN HCL 1,000 MG, VIAL MATE ADAPTER 1 EACH in D5W 250 ML IV SCH ×2 (06:05→23:41)
[2018-08-10 06:23] LABS: BLOOD UREA NITROGEN 26 MG/DL (7-18); CALCIUM LEVEL 8.6 MG/DL (8.8-10.2); CARBON DIOXIDE LEVEL 33 MEQ/L (21-32); CHLORIDE LEVEL 102 MEQ/L (98-107); CREATININE FOR GFR 0.92 MG/DL (0.70-1.30); GLOMERULAR FILTRATION RATE > 60.0 (>42); GLUCOSE, FASTING 90 MG/DL (70-100); POTASSIUM SERUM 4.5 MEQ/L (3.5-5.1); SODIUM LEVEL 139 MEQ/L (136-145)
[2018-08-10 06:28] LABS: ATYPICAL LYMPH 3 % (0-5); LYMPHOCYTES 12 % (16-52); MONOCYTES 2 % (0-8); NEUTROPHILS 83 % (35-75); PLATELET ESTIMATE NORMAL (NORMAL)
[2018-08-10] MEDS: IPRATROPIUM 0.5MG/ALBUTEROL 2.5MG INH SOL UD 3ML (DUONEB)(J7620) NEB SCH ×4 (08:00→23:46)
[2018-08-10] MEDS: MULTIVITAMINS/MINERALS THERAP 1 TAB PO SCH (08:13)
[2018-08-10] MEDS: METOPROLOL SUCC (TopROL XL) 50MG **XL** TAB PO SCH (08:13)
[2018-08-10] MEDS: ALLOPURINOL 300 MG TAB PO SCH (08:13)
[2018-08-10] MEDS: AZITHROMYCIN 250 MG TAB PO SCH (08:13)
[2018-08-10] MEDS: guaiFENesin ER 600 MG TAB PO SCH (08:13)
[2018-08-10] MEDS: predniSONE 20 MG TAB PO SCH (08:13)
[2018-08-10] MEDS: HEPARIN SOD (PORCINE) 5000 UNITS/ML VIAL SC SCH ×2 (08:14→19:56)
[2018-08-10] MEDS: SYMBICORT 80/4.5MCG INHALER 6GM INH SCH ×2 (08:20→20:54)
--- NOTE | 2018-08-10 08:59 | IPNPDOC ---
Subjective Date Seen The patient was seen on 08/10/18. Subjective Chief Complaint/HPI . General: Reports: Normal Appetite; Denies: Chills Pulmonary: Reports: Cough; Denies: Dyspnea Cardiovascular: Denies: Chest Pain, Palpitations, Orthopnea, Edema, Lt Headedness Gastrointestinal: Denies: Nausea, Vomiting Genitourinary: Denies: Dysuria, Frequency Neurological: Reports: Weakness Psych: Reports: Mood Normal Objective Physical Examination General Exam: Positive: Alert, Cooperative, No Acute Distress Eye Exam: Positive: Conjunctiva & lids normal ENT Exam: Positive: Mucous membr. moist/pink Neck Exam: Positive: Supple Chest Exam: Positive: Wheezing; Negative: Normal air movement, Rales, Rhonchi, Diminished Heart Exam: Positive: Rate Normal, Regular Rhythm, Normal S1, Normal S2 Abdomen Exam: Positive: Normal bowel sounds, Soft; Negative: Tenderness, Hepatospenomegaly Extremity Exam: Negative: Clubbing, Cyanosis, Edema Neuro Exam: Positive: Normal Speech Psych Exam: Positive: Mental status NL, Oriented x 3 Assessment /Plan Assessment 1. Sepsis secondary to COPD exacerbation from RSV -patients breathing is improved today, he feels well -WBC resolved to 8.4, pt. remains afebrile -pt-RSV is positive -CXR in ED demonstrated chronic COPD changes, no acute infiltrate -blood and sputum cultures showed MANY GRAM POSITIVE COCCI IN PAIRS AND CHAINS for sputum and gram positive cocci in pairs chains clusters -pt received azithromycin and Rocephin in ED., can continue Azithromycin and Vancomycin, change from IV to PO Azithromycin -ABG showed mildly elevated pCO2 from patients baseline upon presentation -c/w O2 therapy and Duo-Neb therapy for now -Chest PT ordered -weaning steroids 2. Gram positive cocci in blood -fist set blood cx + for gram positive cocci pairs chains and clusters, awaiting organism identification-could be secondary to contamination from skin -begin IV vancomycin for MRSA coverage -consider ID consult if + MRSA -repeat blood cx ordered & pending 3. Diarrhea -pt complained of 2x episodes loose stool this am and one yesterday, no pain with BM's -continue to monitor for now, no WBC and afebrile, possible GI panel if not improved, pt denies blood or mucus in stool 4.Acute on chronic hypoxic respiratory failure -secondary to RSV -plan as detailed above 5. DLP -c/w home medications 6. HTN -c/w home medications 7. Gout -c/w home medications 8. Physical de-conditioning -PT ordered 9. DVT px -heparin sq -SCD TEDS Plan/VTE VTE Prophylaxis Ordered?: Yes VS, I&O, 24H, Fishbone Vital Signs/I&O Vital Signs Date Time Temp Pulse Resp B/P (MAP) Pulse Ox O2 Delivery O2 Flow Rate FiO2 08/10/18 08:13 71 132/79 08/10/18 06:00 97.5 16 100 Nasal Cannula 1.0 I&O- Last 24 Hours up to 6 AM 08/10/18 05:59 Intake Total 1385 ml Output Total 300 ml Balance 1085 ml Laboratory Data 24H LABS Laboratory Tests 2 08/10/18 05:34: Nucleated Red Blood Cells % (auto) 0.0, Neutrophils 83H, Lymphocytes (Manual) 12L, Monocytes (Manual) 2, Atypical Lymphocytes 3, Platelet Estimate NORMAL, Basophilic Stippling 1+, Anion Gap 4L, Glomerular Filtration Rate > 60.0, Blood Urea Nitrogen 26H, Creatinine 0.92, Sodium Level 139, Potassium Level 4.5, Chloride Level 102, Carbon Dioxide Level 33H, Calcium Level 8.6L CBC/BMP Laboratory Tests 08/10/18 05:34 Red Blood Count 3.13 L, Mean Corpuscular Volume 102.2 H, Mean Corpuscular Hemoglobin 34.2 H, Mean Corpuscular Hemoglobin Concent 33.4, Red Cell Distribution Width 13.2, Calcium Level 8.6 L Microbiology Microbiology 08/09/18 Blood Culture, Received Pending 08/09/18 Blood Culture, Received Pending 08/07/18 Blood Culture - Final, Complete Staphylococcus Haemolyticus 08/07/18 Blood Culture - Preliminary, Resulted No Growth after 48 hours. All Specime... 08/07/18 Gram Stain - Final, Complete 08/07/18 Sputum Culture - Final, Complete Streptococcus Pneumoniae 08/07/18 Respiratory Virus Panel (PCR) ([facility]) - Final, Complete Respiratory Syncytial Virus GME ATTESTATION GME ATTESTATION My faculty preceptor for this patient encounter was physically present during the encounter and was fully available. All aspects of the patient interview, examination, medical decision making process, and medical care plan development were reviewed and approved by the faculty preceptor. The faculty preceptor is aware and concurs with the plan as stated in the body of this note and will attest to such by his/her cosignature. MICHELLE GRECO DO Aug 10, 2018 08:59
[2018-08-10 14:00] VITALS: BP 154/83
[2018-08-10] MEDS: SIMVASTATIN 20 MG TAB PO SCH (19:56)
[2018-08-10 22:00] VITALS: BP 140/68
[2018-08-11 06:00] VITALS: BP 160/80
[2018-08-11 06:27] LABS: HEMATOCRIT 33.9 % (42.0-52.0); HEMOGLOBIN 11.3 g/dl (13.5-17.5); MEAN CORPUSCULAR HEMOGLOBIN 34.5 pg (27.0-33.0); MEAN CORPUSCULAR HGB CONC 33.3 g/dl (32.0-36.5); MEAN CORPUSCULAR VOLUME 103.4 fl (80.0-96.0); PLATELET COUNT, AUTOMATED 202 10^3/uL (150-450); RED BLOOD COUNT 3.28 10^6/uL (4.30-6.10)
[2018-08-11 06:57] LABS: BLOOD UREA NITROGEN 23 MG/DL (7-18); CALCIUM LEVEL 8.4 MG/DL (8.8-10.2); CARBON DIOXIDE LEVEL 34 MEQ/L (21-32); CHLORIDE LEVEL 100 MEQ/L (98-107); CREATININE FOR GFR 0.89 MG/DL (0.70-1.30); GLOMERULAR FILTRATION RATE > 60.0 (>42); GLUCOSE, FASTING 81 MG/DL (70-100); POTASSIUM SERUM 4.5 MEQ/L (3.5-5.1); SODIUM LEVEL 139 MEQ/L (136-145)
[2018-08-11 06:59] LABS: ATYPICAL LYMPH 4 % (0-5); LYMPHOCYTES 19 % (16-52); MONOCYTES 10 % (0-8); NEUTROPHILS 67 % (35-75)
[2018-08-11 07:00] LABS: PLATELET ESTIMATE NORMAL (NORMAL)
[2018-08-11] MEDS: IPRATROPIUM 0.5MG/ALBUTEROL 2.5MG INH SOL UD 3ML (DUONEB)(J7620) NEB SCH (08:00)
[2018-08-11] MEDS: SYMBICORT 80/4.5MCG INHALER 6GM INH SCH (08:56)
[2018-08-11] MEDS: guaiFENesin ER 600 MG TAB PO SCH (08:58)
[2018-08-11] MEDS: AZITHROMYCIN 250 MG TAB PO SCH (08:58)
[2018-08-11] MEDS: MULTIVITAMINS/MINERALS THERAP 1 TAB PO SCH (08:58)
[2018-08-11] MEDS: ALLOPURINOL 300 MG TAB PO SCH (08:58)
[2018-08-11] MEDS: predniSONE 20 MG TAB PO SCH (08:58)
[2018-08-11] MEDS: HEPARIN SOD (PORCINE) 5000 UNITS/ML VIAL SC SCH (08:59)
[2018-08-11 09:01] VITALS: BP 137/61
[2018-08-11] MEDS: METOPROLOL SUCC (TopROL XL) 50MG **XL** TAB PO SCH (09:01)
[2018-08-11] MEDS ORDERED: CEFD300CAP PO (09:31)
[2018-08-11] MEDS ORDERED: PRED10TA2 PO (09:31)
--- NOTE | 2018-08-11 11:30 | DS.PDOC ---
Discharge Summary General Date of Admission Aug 07, 2018 at 13:49 Date of Discharge 08.11.18 Discharge Summary PROCEDURES PERFORMED DURING STAY: None ADMITTING DIAGNOSES: 1. 1. Sepsis secondary to COPD exacerbation from RSV 2. DLP 3. HTN 4. Gout 5. Physical deconditioning DISCHARGE DIAGNOSES: 1. Sepsis secondary to COPD exacerbation from RSV 2. Gram positive cocci in blood 3. Diarrhea 4.Acute on chronic hypoxic respiratory failure 5. DLP 6. HTN 7. Gout 8. Physical de-conditioning COMPLICATIONS/CHIEF COMPLAINT: Copd With Acute Exacerbation Sepsis. HISTORY OF PRESENT ILLNESS: This is a 78 y/o male who presented to the hospital on 08.07.18 with complaint of nasal congestion and increased SOB with muscle aches and chills. HOSPITAL COURSE: During the course of the patients hospital stay he was treated with IV antibiotics and eventually transitioned to PO antibiotic therapy, he was also discharged with PO antibiotic therapy. He had a preliminary blood culture that showed gram positive cocci, pairs and chains that eventually was identified as staphylococcus haemolyticus and he was also found to be RSV positive. He was given vancomycin therapy until blood culture organism was identified and felt to be contaminant, repeat blood cultures were negative after this for 48 hours. Gram stain was positive for streptococcus pneumonia. He was also treated with steroid therapy in house. He continued to improve and work with physical therapy. He was instructed to wear his home O2 all of the time, even with ambulation. DISCHARGE MEDICATIONS: Please see below. ALLERGIES: Please see below. PHYSICAL EXAMINATION ON DISCHARGE: VITAL SIGNS: Please see below. GENERAL: pleasant, sitting upright in bed, pleasant HEENT: EOMI, nares patent b/l, moist mucus membranes NECK: supple CARDIOVASCULAR EXAMINATION: normal s1 and s2, no murmurs, rubs or gallops RESPIRATORY EXAMINATION: some diffuse minimal end exp wheezing throughout, otherwise no rales or rhonchi appreciated ABDOMINAL EXAMINATION: soft, non-distended, nabsx4, no pain to palpation, no rebound or guarding appreciated, no hepatosplenomegaly EXTREMITIES: no swelling, erythema or mottling SKIN: intact NEUROLOGICAL EXAMINATION: no focal deficits appreciated PSYCHIATRIC EXAMINATION: affect appropriate LABORATORY DATA: Please see below. IMAGING: CXR 08.07.18 Impression: Advanced chronic COPD/emphysematous disease. No obvious acute process. PROGNOSIS: stable ACTIVITY: As tolerated DIET: regular DISCHARGE PLAN: home DISPOSITION: stable DISCHARGE INSTRUCTIONS: 1. please follow up with pcp within one week of d/c 2. 2. You should wear home O2 all the time ITEMS TO FOLLOWUP ON ON OUTPATIENT: 1. follow up with pcp within one week of d.c DISCHARGE CONDITION: Stable TIME SPENT ON DISCHARGE: Greater than 45 minutes. Vital Signs/I&Os Vital Signs Date Time Temp Pulse Resp B/P (MAP) Pulse Ox O2 Delivery O2 Flow Rate FiO2 08/11/18 09:09 1.0 08/11/18 09:01 76 137/61 08/11/18 06:00 97.3 17 99 Nasal Cannula I&O- Last 24 Hours up to 6 AM 08/11/18 06:00 Intake Total 1710 ml Output Total 800 ml Balance 910 ml Laboratory Data Labs 24H Laboratory Tests 2 08/11/18 06:15: Nucleated Red Blood Cells % (auto) 0.0, Neutrophils 67, Lymphocytes (Manual) 19, Monocytes (Manual) 10H, Atypical Lymphocytes 4, Platelet Estimate NORMAL, Macrocytosis 2+, Anion Gap 5L, Glomerular Filtration Rate > 60.0, Blood Urea Nitrogen 23H, Creatinine 0.89, Sodium Level 139, Potassium Level 4.5, Chloride Level 100, Carbon Dioxide Level 34H, Calcium Level 8.4L CBC/BMP Laboratory Tests 08/11/18 06:15 Red Blood Count 3.28 L, Mean Corpuscular Volume 103.4 H, Mean Corpuscular Hemoglobin 34.5 H, Mean Corpuscular Hemoglobin Concent 33.3, Red Cell Distribution Width 13.2, Calcium Level 8.4 L Microbiology Microbiology 08/09/18 Blood Culture - Preliminary, Resulted No Growth after 48 hours. All Specime... 08/09/18 Blood Culture - Preliminary, Resulted No Growth after 48 hours. All Specime... 08/07/18 Blood Culture - Final, Complete Staphylococcus Haemolyticus 08/07/18 Blood Culture - Preliminary, Resulted No Growth after 72 hours. All specime... 08/07/18 Gram Stain - Final, Complete 08/07/18 Sputum Culture - Final, Complete Streptococcus Pneumoniae 08/07/18 Respiratory Virus Panel (PCR) ([facility]) - Final, Complete Respiratory Syncytial Virus Discharge Medications Scheduled Allopurinol (Zyloprim) 300 Mg Tab, 300 MG PO DAILY, (Reported) Budesonide/Formoterol (Symbicort 160-4.5 Mcg/Act) 60 Puff/Inhaler Aers, 2 PUFF INH BID, (Reported) Cefdinir (Cefdinir) 300 Mg Cap, 1 CAP PO BID Guaifenesin (Guaifenesin ER) 600 Mg Tab, 600 MG PO DAILY, (Reported) Metoprolol Succinate (Toprol Xl) 50 Mg Tab, 50 MG PO DAILY, (Reported) Multivitamins (Centrum Silver Adult 50+) 1 Tab Tab, 1 TAB PO DAILY, (Reported) Prednisone (Prednisone) 10 Mg Tab, 10 MG PO TAPER Take 4 tabs daily x 3 days, then 3 tabs daily x 3 days, then 2 tabs daily x 3 days, then 1 tab daily x 3 days and stop Simvastatin (Simvastatin) 20 Mg Tab, 20 MG PO QHS, (Reported) Scheduled PRN Albuterol Sulfate (Ventolin Hfa) 108 Mcg/Act Aer, 2 PUFFS INH Q4H PRN for SHORTNESS OF BREATH, (Reported) Allergies Coded Allergies: No Known Allergies (Unverified , 12/12/17) GME ATTESTATION GME ATTESTATION My faculty preceptor for this patient encounter was physically present during the encounter and was fully available. All aspects of the patient interview, examination, medical decision making process, and medical care plan development were reviewed and approved by the faculty preceptor. The faculty preceptor is aware and concurs with the plan as stated in the body of this note and will attest to such by his/her cosignature. MICHELLE GRECO DO Aug 11, 2018 11:30
== END 2018-08-11 13:27 | disposition home health service (06) | DRG 871 ==
LOC: M ED 09:53 → M ED INP 13:49 → M MSPAV 15:42
PROVIDERS: ADMIT Internal Medicine; ATTEND Internal Medicine Nephrology
DX: A41.9 Sepsis, unspecified organism (principal); J96.21 Acute and chronic respiratory failure with hypoxia; J44.1 Chronic obstructive pulmonary disease with (acute) exacerbation; B97.4 Respiratory syncytial virus as the cause of diseases classified elsewhere; I10 Essential (primary) hypertension; M10.9 Gout, unspecified; Z79.899 Other long term (current) drug therapy; F17.200 Nicotine dependence, unspecified, uncomplicated

== ENCOUNTER → 2019-06-04 | Outpatient (CLI) | payer MEDICARE ==
[~2019-06-04] MED LIST changes: -AMLO5TAB4 PO; +AMLO5TAB6 PO; +CEFD300CAP PO; +CENT1TAB PO; +GUAI1TAB PO; +SIMV20TA2 PO; +TOPR50TA PO; -TOPR50TA23 PO
[2019-06-04 11:29] LABS: BASO % 0.7 % (0.0-1.0); EOS # 0.1 10^3/uL (0.0-0.5); EOS % 2.2 % (0.0-3.0); HEMATOCRIT 39.9 % (42.0-52.0); HEMOGLOBIN 13.2 g/dl (13.5-17.5); LYMPH # 1.3 10^3/uL (1.5-5.0); LYMPH % 22.6 % (24.0-44.0); MEAN CORPUSCULAR HEMOGLOBIN 34.6 pg (27.0-33.0); MEAN CORPUSCULAR HGB CONC 33.1 g/dl (32.0-36.5); MEAN CORPUSCULAR VOLUME 104.7 fl (80.0-96.0); MONO # 0.6 10^3/uL (0.0-0.8); MONO % 10.6 % (0.0-5.0); NEUTROPHILS # 3.7 10^3/uL (1.5-8.5); NEUTROPHILS % 63.7 % (36.0-66.0); PLATELET COUNT, AUTOMATED 220 10^3/uL (150-450); RED BLOOD COUNT 3.81 10^6/uL (4.30-6.10); WHITE BLOOD COUNT 5.9 10^3/uL (4.0-10.0)
[2019-06-04 12:03] LABS: ALBUMIN 3.6 GM/DL (3.2-5.2); BILIRUBIN,TOTAL 0.5 MG/DL (0.2-1.0); CALCIUM LEVEL 9.7 MG/DL (8.8-10.2); CHOLESTEROL RISK RATIO 1.571 (<5); CREATININE FOR GFR 1.88 MG/DL (0.70-1.30); GLOMERULAR FILTRATION RATE 36.9 (>35); POTASSIUM SERUM 4.3 MEQ/L (3.5-5.1); TOTAL PROTEIN 6.9 GM/DL (6.4-8.2); URIC ACID 4.1 MG/DL (3.5-7.2)
== END ==
LOC: M LAB 10:05
PROVIDERS: ATTEND Family Medicine
DX: M10.9 Gout, unspecified (principal); D64.9 Anemia, unspecified; I10 Essential (primary) hypertension

== ENCOUNTER → 2020-03-09 | Emergency (ER) | payer MEDICARE ==
[~2020-03-09] MED LIST changes: +AMLO1TAB24 PO; -AMLO5TAB6 PO; -SIMV20TA2 PO; +SIMV20TA22 PO; -SIMV40TA2 PO; +SIMV40TA20 PO
[2020-04-05 20:25] LABS: BASO % 0.4 % (0.0-1.0); EOS # 0.1 10^3/uL (0.0-0.5); EOS % 0.8 % (0.0-3.0); HEMATOCRIT 40.7 % (42.0-52.0); HEMOGLOBIN 13.4 g/dl (13.5-17.5); LYMPH # 0.9 10^3/uL (1.5-5.0); LYMPH % 8.7 % (24.0-44.0); MEAN CORPUSCULAR HEMOGLOBIN 34.2 pg (27.0-33.0); MEAN CORPUSCULAR HGB CONC 32.9 g/dl (32.0-36.5); MEAN CORPUSCULAR VOLUME 103.8 fl (80.0-96.0); MONO # 0.9 10^3/uL (0.0-0.8); MONO % 8.4 % (0.0-5.0); NEUTROPHILS # 8.4 10^3/uL (1.5-8.5); NEUTROPHILS % 81.2 % (36.0-66.0); PLATELET COUNT, AUTOMATED 225 10^3/uL (150-450); RED BLOOD COUNT 3.92 10^6/uL (4.30-6.10); WHITE BLOOD COUNT 10.3 10^3/uL (4.0-10.0)
--- NOTE | 2020-04-22 15:08 | ECGEPIP ---
SINUS TACHYCARDIA WITH OCCASIONAL SUPRAVENTRICULAR PREMATURE COMPLEXES ABNORMAL RHYTHM ECG NONSPECIFIC [facility] ABNORMALITY NO OLD AVAILABLE SEE SCANNED DOWNTIME REPORT MTDD
[2020-04-28 14:12] LABS: CALCIUM LEVEL 9.6 MG/DL (8.8-10.2); CREATININE FOR GFR 1.28 MG/DL (0.70-1.30); GLOMERULAR FILTRATION RATE 57.4 (>35)
[2020-05-18 01:00] LABS: ABG HCO3 28.9 MEQ/L (22.0-26.0); ABG O2 SATURATION 95.6 % (95.0-99.0); ABG PARTIAL PRESSURE CO2 44.6 mmHg (35.0-45.0); ABG PARTIAL PRESSURE O2 75.2 mmHg (75.0-100.0); ABG TOTAL CO2 30.2 MEQ/L (23.0-31.0); ABG pH (ARTERIAL) 7.429 UNITS (7.350-7.450)
== END | disposition home or self-care (01) ==
LOC: M ED 15:11
DX: R06.02 Shortness of breath (principal); E78.49 Other hyperlipidemia; I10 Essential (primary) hypertension; J44.9 Chronic obstructive pulmonary disease, unspecified; F17.200 Nicotine dependence, unspecified, uncomplicated; M10.9 Gout, unspecified; Z79.51 Long term (current) use of inhaled steroids; Z79.899 Other long term (current) drug therapy